=== PATIENT | male | born 1970 ===

== ENCOUNTER 2020-07-19 19:18 | Observation (INO) | payer SELFPAY ==
[~2020-07-19] VITALS: Ht 180.3 cm; Wt 54.5 kg
[2020-07-19] MEDS ORDERED: IV NORMAL SALINE 1000ML BAG 1,000 ML IV ONE (19:45)
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
[2020-07-19 19:54] LABS: BASO % 0 % (0-3); EOS # 0.2 x10^3/uL (0.0-0.7); EOS % 3 % (0-3); HEMATOCRIT 40.2 % (39.0-53.0); HEMOGLOBIN 13.5 g/dL (13.0-17.5); LYMPH # 1.4 x10^3/uL (1.0-4.8); LYMPH % 29 % (24-48); MEAN CORPUSCULAR HEMOGLOBIN 30 pg (25-35); MEAN CORPUSCULAR HGB CONC 34 g/dL (31-37); MEAN CORPUSCULAR VOLUME 89 fL (79-100); MONO # 0.5 x10^3/uL (0.0-1.1); MONO % 10 % (0-9); NEUT # 2.9 x10^3/uL (1.8-7.7); NEUT % 58 % (31-73); PLATELET COUNT 253 x10^3/uL (140-400); RED BLOOD COUNT 4.52 x10^6/uL (4.30-5.70); RED CELL DISTRIBUTION WIDTH 13.9 % (11.5-14.5)
[2020-07-19 20:03] LABS: PROTHROMBIN TIME PATIENT 12.3 SEC (11.7-14.0)
[2020-07-19 20:05] LABS: CALCIUM 8.8 mg/dL (8.5-10.1); GFR 79.4; POTASSIUM 4.3 mmol/L (3.5-5.1)
[2020-07-19 20:09] LABS: ALBUMIN 3.7 g/dL (3.4-5.0); ALBUMIN/GLOBULIN RATIO 1.1 (1.0-1.7); TOTAL BILIRUBIN 0.2 mg/dL (0.2-1.0); TOTAL PROTEIN 7.1 g/dL (6.4-8.2)
[2020-07-19 20:17] LABS: BILIRUBIN,URINE NEGATIVE (NEG); CLARITY,URINE CLEAR; COLOR,URINE YELLOW; NITRITE,URINE NEGATIVE (NEG); PH,URINE 6.5 (<5.0-8.0); PROTEIN,URINE NEGATIVE (NEG-TRACE)
[2020-07-19 20:25] LABS: BACTERIA,URINE 0 /HPF (0-FEW); RBC,URINE OCC /HPF (0-2); SPERM,URINE PRESENT /HPF
[2020-07-19] MEDS ORDERED: IOHEXOL 300 MG/ML 100ML VIAL. IV ONE (20:30)
--- NOTE | 2020-07-19 20:58 | RAD ---
Examination: CT ABDOMEN+PELVIS W History: Reason: acute rectal bleeding, HX of hemorrids, OMNI 300, 75 ML IV / Comparison/Correlation: None Findings: Axial images of the abdomen and pelvis were obtained following IV contrast. Sagittal and co magda reformatted images were obtained. Visualized lung bases are clear. Liver, spleen, pancreas, adrenal glands, and kidneys are normal. Gallbladder fossa is decompressed. U rinary bladder is mostly decompressed. Moderate quantity of stool is present in the proximal colon. There is no distended large or small bow el are evident. Evaluation of bowel is very limited due to very minimal mesenteric fat and lack of or al contrast administration. Assessment for inflammatory processes in particular is very limited. No e xtraluminal gas suggested. No enlarged abdominal or pelvic lymph nodes. No ascites or pelvic free flu id. Bony structures are unremarkable. Impression: No suspicious process identified. PQRS Compliance Statement: One or more of the following individualized dose reduction techniques were utilized for this examinat ion: 1. Automated exposure control 2. Adjustment of the mA and/or kV according to patient size 3. Use of iterative reconstruction technique Electronically signed by: Hugo Gutierrez MD (07/19/2020 8:55 PM) [facility]
[2020-07-19] MEDS ORDERED: CONTRAST GIVEN. MC PRN (21:00)
[2020-07-19 23:40] VITALS: BP 132/83
[2020-07-20 03:08] VITALS: BP 126/77
[2020-07-20 07:00] VITALS: BP 128/82
[2020-07-20] MEDS ORDERED: POLYETHYLENE GLYCOL 3350 17 GM PACKET. PO ONE (08:30)
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
[2020-07-20 08:48] LABS: HEMATOCRIT 40.2 % (39.0-53.0); HEMOGLOBIN 13.3 g/dL (13.0-17.5); RED BLOOD COUNT 4.47 x10^6/uL (4.30-5.70); RED CELL DISTRIBUTION WIDTH 14.3 % (11.5-14.5); WHITE BLOOD COUNT 4.6 x10^3/uL (4.0-11.0)
[2020-07-20] MEDS ORDERED: DOCUSATE SODIUM 100 MG CAPSULE. PO SCH (09:00)
[2020-07-20] MEDS ORDERED: DOCU-109 PO (09:14)
--- NOTE | 2020-07-20 09:28 | NUR ---
SW following. Discussed with RN, pt from home, room air. RN has not seen any sign of rectal bleeding and pt's labs are normal. Discharge order for home with self care. No further SW needs.
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
== END 2020-07-20 11:36 | disposition home or self-care (01) ==
LOC: ER 19:18 → 4 NORTH 20:52
PROVIDERS: ADMIT Internal Medicine; ATTEND Internal Medicine
DX: K62.5 Hemorrhage of anus and rectum (principal); Z20.828 Contact with and (suspected) exposure to other viral communicable diseases; F12.90 Cannabis use, unspecified, uncomplicated; F17.210 Nicotine dependence, cigarettes, uncomplicated
CPT/HCPCS: 36415; 74177; 80053; 81001; 85025; 85027; 85610; 86850; 86900; 86901; 87426; 96360; 99285; G0378; J7030; Q9967; U0003; G0379